=== PATIENT | female | born 1955 | race Caucasian/White ===

== ENCOUNTER → 2024-10-18 | Outpatient (CLI) | payer MEDICARE ==
--- NOTE | 2024-10-18 10:30 | HMCSR ---
APPROVED REPORT Indications HTN Renal Artery Doppler Origin (R) 146.9/13.9 cm/secOrigin (L) 130.1/33.1 cm/sec Proximal (R) 213.0/49.7 cm/secProximal (L) 222.4/66.3 cm/sec Mid (R) 201.1/37.9 cm/secMid (L) 139.6/33.1 cm/sec Distal (R) 75.5/23.7 cm/secDistal (L) 217.7/56.8 cm/sec Renal/Aorta Ratio (R) 2.57Renal Aorta Ratio (L) 2.68 Resistive Index (R) 0.75Resistive Index (L) 0.67 Segmental A. (R) 75.7/18.9 cm/secLt. Segmental A. (L) 67.4/22.5 cm/sec Renal Measurements Kidney Size (R) 10.0x3.6x4.8 cmKidney Size (L)9.9x4.4x4.4 cm Aortic Doppler VelocityWaveform Proximal Aorta 82.8 cm/sec Technologist Impression An attempt was made to evaluate the abdominal aorta, the right and left renal arteries and kidneys, u tilizing duplex ultrasonography and color flow doppler. Bilateral Renal Artery elevated velocities, but RAR is <3.5 Both kidneys appear to be within normal size parameters (greater than 9.0cm and symmetrical). RT. Kidney pelvic fullness. LT. Kidney mild hydronephrosis. Conclusion Mild to moderate bilateral renal artery stenosis Conclusion Mild to moderate bilateral renal artery stenosis
== END | disposition home or self-care (01) ==
LOC: SHCH 08:57
PROVIDERS: ATTEND Internal Medicine Cardiovascular Disease
DX: I70.1 Atherosclerosis of renal artery (principal); N13.30 Unspecified hydronephrosis; I10 Essential (primary) hypertension; I1A.0 Resistant hypertension
CPT/HCPCS: 93975

== ENCOUNTER → 2024-10-19 | Outpatient (CLI) | payer MEDICARE ==
[2024-10-19] MEDS: REGADENOSON 0.4 MG/5 ML PF SYG IVP ONE (11:08)
--- NOTE | 2024-10-20 09:36 | HMCSR ---
APPROVED REPORT Height: 5 ft 3in Weight: 130 lbs TEST INDICATIONS CAD The imaging protocol used to acquire images was Rest Tc-99m/stress Tc-99m 1 day Consent: The procedure was explained and understood by the patient. Informerd consent was witnessed Venkata Hernández RN First, low dose rest was performed then high dose stress. RESTING DATA: The resting ekg shows: NSR Rest SPECT myocardial perfusion imaging was performed in supine position 60 minutes following the int ravenous injection of 11.7 mCi of Tc-99 Sestamibi. Time of rest injection: 08:13: Date: 10/19/2024 Time of rest imagin:13: Date: 10/19/2024 PHARMACOLOGIC STRESS: Pharmacologic stress test was performed by injecting regadenoson 0.4 mg IV push followed by the intra venous injection of 31.1 mCi of Tc-99 Sestamibi. Time of stress injection: 09:39: Date: 10/19/2024 Time of stress imagin:48: Date: 10/19/2024 Heart Rate at time of stress injection: 73 bpm. Gated Stress SPECT was performed 69 minutes after stress injection. The images were gated to evaluate regional wall motion and calculate left ventricular ejection fracti on. STRESS DETAILS Reason for Termination: Infusion complete Stress Symptoms: Chest Discomfort, Dyspnea Max HR Achieved: 70 bpm % of APMHR Achieved: 47 Max Blood Pressure: 118/83 mmHg Stress ECG: NSR Conclusion No ischemia No infarct LV ejection fraction greater than 70% Normal LV wall motion Normal LV size at rest and stress No evidence of increased lung uptake
== END | disposition home or self-care (01) ==
LOC: SHCH 07:33 → EDUNIT# 08:00
PROVIDERS: ATTEND Internal Medicine Cardiovascular Disease
DX: I25.10 Atherosclerotic heart disease of native coronary artery without angina pectoris (principal); R07.89 Other chest pain; R06.00 Dyspnea, unspecified
CPT/HCPCS: 78452; 93017; J2785; A9500 ×2